=== PATIENT | male | born 1980 | race Caucasian/White ===

== ENCOUNTER 2017-02-18 14:09 | Emergency (ER) | payer OTHER ==
[~2017-02-18] VITALS: Ht 193 cm; Wt 138.6 kg
[2017-02-18] MEDS ORDERED: LISINOPRIL10 MG PO (14:23)
[2017-02-18] MEDS ORDERED: MOTRIN600 MG PO (16:47)
[2017-02-18] MEDS ORDERED: PERCOCET 5/31 TABLET PO (16:47)
[2017-02-18 16:57] VITALS: BP 155/88
== END 2017-02-18 16:57 | disposition home or self-care (01) ==
LOC: EME 14:09
DX: S70.12XA Contusion of left thigh, initial encounter (principal); N50.812 Left testicular pain; W21.03XA Struck by baseball, initial encounter
CPT/HCPCS: 73552; 76870; 99281; 99283